=== PATIENT | female | born 1960 | race Caucasian/White ===

== ENCOUNTER → 2017-10-13 | Outpatient (CLI) | payer BC ==
[~2017-10-13] MED LIST: AMOX500C2 PO; AZTH250C PO; CARV12.53 PO; CHOL200018 PO; CHOL200035 PO; CNDS16T; CTRZ10T; HCT25T PO; HCTZ12.5T; IRB150T PO; IRBE150T50 PO; METH16TA2 PO; METO100T5 PO; MNTL10T; MNTL10T PO; OMEG-12 PO; PANT20TA2 PO; PRD20T PO; PRED20TA PO; ROSU10TA12; ROSU5TAB PO; TRZS2T PO; [UNRECOGNIZED DRUG - OTHER] PO
--- NOTE | 2017-10-14 21:43 | Diagnostic Imaging Report ---
Bilateral screening mammogram 2D views with tomosynthesis The current study was also evaluated with a Computer Aided Detection (CAD) system. Indication: Screening. No current complaints stated on the questionnaire. COMPARISON: 10/08/2016 FINDINGS: The breasts are composed of scattered fibroglandular densities. Benign-appearing calcifications are seen. Allowing for technique and positional differences, no suspicious change is seen. IMPRESSION: No significant change. ACR BI-RADS Category 2: Benign findings. Result letter will be mailed to the patient. Note: At least 10% of breast cancer is not imaged by mammography. Dictated by: Dictated on workstation # [id number]
== END ==
LOC: RAD 09:58
PROVIDERS: ATTEND Family Medicine
DX: Z12.31 Encounter for screening mammogram for malignant neoplasm of breast (principal)
CPT/HCPCS: 77067

== ENCOUNTER → 2018-04-28 | Outpatient (CLI) | payer BC ==
[~2018-04-28] VITALS: Ht 167.6 cm; Wt 102.2 kg
[~2018-04-28] MED LIST changes: +CETI10CA PO; +CHOL200014 PO; +GLUC-219 PO; +METO-395 PO
== END ==
LOC: PREOP 04-27 05:36
PROVIDERS: ATTEND Surgery
DX: Z01.818 Encounter for other preprocedural examination (principal); Z12.11 Encounter for screening for malignant neoplasm of colon

== ENCOUNTER 2018-05-04 06:55 | Day surgery (SDC) | payer BC ==
[~2018-05-04] VITALS: Ht 167.6 cm; Wt 102.2 kg
--- OUTSIDE RECORDS SUMMARY | 2018-05-04 06:57 | XMS REPORT | Continuity of Care Document ---
Author Author [facility] Organization [facility] Address Unknown Phone Unavailable Allergies Active Description Code Type Severity Reaction Onset Reported/Identified Relationship to Patient Clinical Status Yes NKANo Known Allergies NKA Miscellaneous Allergy Unknown N/A 07/10/2007 Medications There is no data. Problems Date Dx Coded Attending Type Code Diagnosis Diagnosed By 05/22/2015 ALANNAH WINTER MD Ot 708.9 10/19/2015 NEWTON HUMPHRIES Ot Z12.31 04/17/2016 Ot 708.0 ALLERGIC URTICARIA 04/17/2016 Ot 782.1 NONSPECIF SKIN ERUPT NEC 10/08/2016 BENJA MCCULLOUGH MD Ot Z12.31 ENCNTR SCREEN MAMMOGRAM FOR MALIGNANT NE 10/08/2016 BENJA MCCULLOUGH MD Ot Z12.31 ENCNTR SCREEN MAMMOGRAM FOR MALIGNANT NE 10/09/2016 BENJA MCCULLOUGH MD Ot Z12.31 ENCNTR SCREEN MAMMOGRAM FOR MALIGNANT NE 10/09/2016 BENJA MCCULLOUGH MD Ot Z12.31 ENCNTR SCREEN MAMMOGRAM FOR MALIGNANT NE 10/18/2016 BENJA MCCULLOUGH MD Ot Z12.31 ENCNTR SCREEN MAMMOGRAM FOR MALIGNANT NE 11/17/2016 Ot 708.0 ALLERGIC URTICARIA 11/17/2016 Ot 782.1 NONSPECIF SKIN ERUPT NEC 02/15/2017 Ot 708.0 ALLERGIC URTICARIA 02/15/2017 Ot 782.1 NONSPECIF SKIN ERUPT NEC 08/17/2017 Ot 708.0 ALLERGIC URTICARIA 08/17/2017 Ot 782.1 NONSPECIF SKIN ERUPT NEC 10/14/2017 BENJA MCCULLOUGH MD Ot Z12.31 ENCNTR SCREEN MAMMOGRAM FOR MALIGNANT NE 10/22/2017 BENJA MCCULLOUGH MD Ot Z12.31 ENCNTR SCREEN MAMMOGRAM FOR MALIGNANT NE Procedures There is no data. Results There is no data. Encounters ACCT No. Visit Date/Time Discharge Status Pt. Type Provider Facility Loc./Unit Complaint [id number] 10/13/2017 09:58:00 10/13/2017 23:59:59 CLS Outpatient BENJA MCCULLOUGH MD [facility] RAD SCREENING [id number] 10/08/2016 10:30:00 10/08/2016 23:59:59 CLS Outpatient BENJA MCCULLOUGH MD [facility] RAD SCREENING [id number] 10/03/2015 09:05:00 10/03/2015 23:59:59 CLS Outpatient NEWTON HUMPHRIES [facility] RAD [id number] 05/22/2015 05:49:00 05/22/2015 06:43:00 DIS Emergency MOY BARROW, ALANNAH Delacruz [facility] ER [id number] 09/08/2014 12:49:00 09/08/2014 23:59:59 CLS Outpatient [id number] 09/01/2014 09:21:00 09/01/2014 23:59:59 CLS Outpatient [id number] 05/04/2018 08:00:00 PEN Preadmit JAIR BARROW, MARIFER Sy [facility] ENDO SCREENING [id number] 01/17/2012 21:15:00 Document Registration [id number] 09/22/2017 17:01:48 09/22/2017 23:59:59 CLS Outpatient
[2018-05-04] MEDS ORDERED: NS IV 500 ML 500 ML ONE (06:58)
[2018-05-04] MEDS ORDERED: NS IV 500 ML 500 ML IV PRN (07:09)
[2018-05-04 07:21] VITALS: BP 124/98
--- NOTE | 2018-05-04 07:26 | History & Physicial ---
History of Present Illness History of Present Illness Reason for visit/HPI To undergo screening colonoscopy Date of Admission 05/04/18 Date Seen by Provider: May 04, 2018 Time Seen by Provider: 07:25 I consulted on this patient on 05/04/18 07:25 Attending Physician Marifer Goldstein MD Admitting Physician Phyllis Escobar MD Consult Allergies and Home Medications Allergies Coded Allergies: No Known Drug Allergies (Unverified , 04/28/18) Home Medications Cetirizine HCl 10 Mg Capsule, 5 MG PO DAILY, (Reported) Cholecalciferol (Vitamin D3) 2,000 Unit Tablet, 2,000 UNIT PO DAILY, (Reported) Glucosamine/D3/Boswellia Bessie 1 Each Tablet, 1 EACH PO DAILY, (Reported) Irbesartan 150 Mg Tablet, 150 MG PO DAILY, (Reported) Metoprolol Succinate 100 Mg Tab.er.24h, 100 MG PO DAILY, (Reported) Rosuvastatin Calcium 5 Mg Tablet, 5 MG PO HS, (Reported) Patient Home Medication List Home Medication List Reviewed: Yes Past Swgsfoa-Cpawni-Jcxfgq Hx Patient Social History Recent Foreign Travel: No Contact w/other who traveled: No Recent Hopitalizations: No Recent Infectious Disease Expo: No Seasonal Allergies Seasonal Allergies: No Cardiovascular Yes High Cholesterol, Hypertension Neurological No Reproductive System Hx Reproductive Disorders: No Sexually Transmitted Disease: No HIV/AIDS: No [employer]ER History: Menopausal Gastrointestinal Yes Polyps Musculoskeletal No Endocrine History of Endocrine Disorders: No HEENT History of HEENT Disorders: No Loss of Vision: Bilateral Hearing Impairment: Denies Blood Transfusions Adverse Reaction to a Blood Tr: No (N/A) Constitutional: no symptoms reported EENTM: no symptoms reported Respiratory: no symptoms reported Cardiovascular: no symptoms reported Gastrointestinal: no symptoms reported Genitourinary: no symptoms reported Musculoskeletal: no symptoms reported Skin: no symptoms reported Psychiatric/Neurological: No Symptoms Reported Physical Exam Vital Signs Vital Signs - First Documented 05/04/18 07:21 Temp 97.5 Pulse 83 Resp 18 B/P (MAP) 124/98 (107) Pulse Ox 95 O2 Delivery Room Air Capillary Refill : General Appearance: No Apparent Distress HEENT: Normal ENT Inspection Neck: Normal Inspection Respiratory: Lungs Clear Cardiovascular: Regular Rate, Rhythm Gastrointestinal: Non Tender, Soft Rectal: Deferred Neurologic/Psychiatric: Alert, Oriented x3 Skin: Warm/Dry Assessment/Plan Assessment and Plan Lady to undergo screening colonoscopy. Discussed in detail. Admission Diagnosis Admission Status: Other (Outpt Proc) MARIFER GOLDSTEIN MD May 04, 2018 7:26 am
--- NOTE | 2018-05-04 07:27 | Conscious Sedation/ASA ---
Conscious Sedation Pre-Proced Time Reviewed: 07:26 ASA Class: 2 Airway Mallampati Classification: (tolowa dee-ni' appropriate class) I. II. III, IV Lungs Heart ASA score ASA 1: a normal healthy patient ASA 2: a patient with a mild systemic disease (mid diabetes, controlled hypertension, obesity ASA 3: a patient with a severe systemic disease that limits activity (angina , COPD, prior Myocardial infarction) ASA 4: a patient with an incapacitating disease that is a constant threat to life (CHF, renal failure) ASA 5: a moribund patient not expected to survive 24 hrs. (ruptured aneurysm) ASA 6: a declared brain patient whose organs are being harvested. For emergent operations, add the letter E after the classification Grade 1 Sedation Plan: Discussed options with patient/fam Note The patient is an appropriate candidate to undergo the planned procedure, sedation, and anesthesia. The patient immediately re-assessed prior to indication. MARIFER ADAM MD May 04, 2018 7:27 am
[2018-05-04] MEDS ORDERED: MIDAZOLAM 2 MG/2 ML (VERSED) VIAL ONE ×3 (07:44→07:45)
[2018-05-04] MEDS ORDERED: fentaNYL INJECTION 100 MCG/2 ML AMP ONE (07:44)
[2018-05-04] MEDS: MIDAZOLAM 2 MG/2 ML (VERSED) VIAL IVP PRN ×2 (07:52→07:55)
[2018-05-04] MEDS: fentaNYL INJECTION 100 MCG/2 ML AMP IVP PRN ×2 (07:53→07:56)
--- NOTE | 2018-05-04 08:05 | Endo Procedure Record ---
Endo Procedure Report Date of Procedure Last Colonoscopy: Yes (2011) May 04, 2018 Surgeon (s) MARIFER ADAM MD Post Procedure/Op Diagnosis Sigmoid diverticulosis Procedure Performed Colonoscopy to cecum Description of Procedure Anesthesia Type: Conscious Sedation Specimen(s) collected/removed None Description of the Procedure Indication for the procedure: This lady came in for surveillance colonoscopy, having had polyps about 6 years ago. Informed consent was obtained after reviewing the procedure in detail. Description of procedure: She was placed in left lateral decubitus position and her vital signs were monitored. Conscious sedation was achieved using Versed and fentanyl. Digital rectal exam unremarkable. The colonoscope was then introduced into the rectum and advanced all the way up to the cecum . It was then withdrawn slowly and the mucosa examined in a systematic fashion. Finding: Sigmoid diverticulosis. No recurrent polyps were found She tolerated the procedure well and was taken back to the nursing area in a stable condition. Impression: Surveillance colonoscopy. No recurrent polyps. Recommend repeating in 5 years. Copy Copies To 1: BENJA MCCULLOUGH MD, XAVIER M MD May 04, 2018 8:05 am
--- NOTE | 2018-05-04 08:06 | Discharge Inst-Simple/Standard ---
Discharge Inst-Standard Discharge Medications New, Converted or Re-Newed RX: Other Patient Instructions/Follow Up Plan of Care/Instructions/FU: Repeat colonoscopy in 5 years Activity as Tolerated: Yes Discharge Diet: No Restrictions MARIFER ADAM MD May 04, 2018 8:06 am
[2018-05-04 08:25] VITALS: BP 94/75
[2018-05-04 08:48] VITALS: BP 104/76
[2018-05-04 08:52] VITALS: BP 104/76
== END 2018-05-04 09:00 | disposition home or self-care (01) ==
LOC: ENDO 06:55
PROVIDERS: ATTEND Surgery
DX: Z12.11 Encounter for screening for malignant neoplasm of colon (principal); K57.30 Diverticulosis of large intestine without perforation or abscess without bleeding; Z86.010 Personal history of colon polyps; I10 Essential (primary) hypertension; Z79.899 Other long term (current) drug therapy

== ENCOUNTER → 2018-10-15 | Outpatient (CLI) | payer BC ==
[~2018-10-15] MED LIST changes: -CHOL200014 PO; +CHOL200085 PO
--- NOTE | 2018-10-15 10:59 | Diagnostic Imaging Report ---
Indication: Routine screening. Comparison is made with prior mammogram from 10/13/2017 and 10/08/2016. 2-D and 3-D bilateral screening mammography was performed with CAD. Scattered fibroglandular densities are identified bilaterally. There is a rounded density in the outer portion of the left breast at mid depth, appearing more prominent than prior exams. No definite correlate is identified on the MLO view. Additional views are recommended. Right breast is unremarkable. No suspicious calcifications are seen. Axillae are unremarkable. Impression: BI-RADS 0 Left breast density. Additional views are recommended for further evaluation. ACR BI-RADS Category 0: Incomplete. (Needs additional imaging evaluation). Result letter will be mailed to the patient. Note: At least 10% of breast cancer is not imaged by mammography. Dictated by: Dictated on workstation # [id number]
== END ==
LOC: RAD 07:28
PROVIDERS: ATTEND Family Medicine
DX: Z12.31 Encounter for screening mammogram for malignant neoplasm of breast (principal); R92.8 Other abnormal and inconclusive findings on diagnostic imaging of breast
CPT/HCPCS: 77067

== ENCOUNTER → 2018-10-22 | Outpatient (CLI) | payer BC ==
--- NOTE | 2018-10-22 21:42 | Diagnostic Imaging Report ---
INDICATION: Left breast density. Patient presents for additional views. Correlation is made with recent screening study from 10/15/2018. Unilateral left 2-D and 3-D diagnostic mammography was performed with computer-aided detection (CAD) system. This included spot compression CC and ML as well as conventional 90-degree lateral view. FINDINGS: Additional views confirm a fairly well-circumscribed nodule in the outer left breast mid depth approximately 5 cm from the nipple. This density measures approximate 8 mm in size. No other abnormality is seen. IMPRESSION: Persistent nodular density outer left breast at approximately 3 o'clock and 5 cm from the nipple. Directed sonographic interrogation of this area is recommended and will be performed today. ACR BI-RADS Category 0: Incomplete. (Needs additional imaging evaluation). Result letter will be mailed to the patient. Note: At least 10% of breast cancer is not imaged by mammography. Dictated by: Dictated on workstation # [id number]
--- NOTE | 2018-10-22 21:45 | Diagnostic Imaging Report ---
INDICATION: Left breast density. Correlation is made with diagnostic mammogram earlier the same day and screening mammogram from 10/15/2018. FINDINGS: Sonographic interrogation of the outer left breast was performed. There is a small circumscribed hypoechoic mass at the 3 o'clock location 5 cm from the nipple measuring 7 mm x 7 mm x 3 mm. This likely represents a small cyst. There may be some slight internal complexity. No internal vascularity is present. IMPRESSION: Probable small slightly complex cyst, 3 o'clock location, likely accounting for the mammographic density. Patient may return to routine annual screening mammography. ACR BI-RADS Category 2: Benign findings. Dictated by: Dictated on workstation # [id number]
== END ==
LOC: RAD 10:49
PROVIDERS: ATTEND Nurse Practitioner Family
DX: R92.2 Inconclusive mammogram (principal)
CPT/HCPCS: 76642

== ENCOUNTER → 2019-10-18 | Outpatient (CLI) | payer BC ==
[~2019-10-18] MED LIST changes: +CHOL200014 PO; -CHOL200085 PO
--- NOTE | 2019-10-18 09:46 | Diagnostic Imaging Report ---
INDICATION: Routine screening. Comparison is made with prior mammogram 10/15/2018 and 10/13/2017. 2-D and 3-D bilateral screening mammography was performed with CAD. Scattered fibroglandular densities are identified bilaterally. Previously noted density in the outer left breast has resolved. There are benign calcifications in both breasts. No spiculated mass or malignant appearing microcalcifications are seen. Axillae are unremarkable. IMPRESSION: BI-RADS Category 2 No mammographic features suspicious for malignancy are identified. ACR BI-RADS Category 2: Benign findings. Result letter will be mailed to the patient. Note: At least 10% of breast cancer is not imaged by mammography. Dictated by: Dictated on workstation # [id number]
== END ==
LOC: RAD 07:16
PROVIDERS: ATTEND Family Medicine
DX: Z12.31 Encounter for screening mammogram for malignant neoplasm of breast (principal)
CPT/HCPCS: 77067

== ENCOUNTER → 2020-10-20 | Outpatient (CLI) | payer BC ==
[~2020-10-20] MED LIST changes: -METO-395 PO; +MTP100TCR PO
--- NOTE | 2020-10-20 12:18 | Diagnostic Imaging Report ---
Digital mammogram INDICATION: Bilateral screening This study was compared to the prior exams of 10/18/2019 10/15/2018 and 10/13/2017. At this time there are no current complaints. The breasts are predominantly fatty. When compared to the prior study there has been no significant change. There is no primary or secondary sign of malignancy noted. IMPRESSION: 1. There is no evidence of malignancy. ACR BI-RADS Category 1: Negative. Result letter will be mailed to the patient. Note: At least 10% of breast cancer is not imaged by mammography. Dictated by: Dictated on workstation # [id number]
== END ==
LOC: RAD 10:17
PROVIDERS: ATTEND Nurse Practitioner Family
DX: Z12.31 Encounter for screening mammogram for malignant neoplasm of breast (principal)
CPT/HCPCS: 77063; 77067

== ENCOUNTER → 2021-03-06 | Outpatient (CLI) | payer BC ==
[~2021-03-06] VITALS: Ht 165 cm; Wt 96.0 kg
[~2021-03-06] MED LIST changes: +REGADENOSON 0.4 MG/5 ML SYR (LEXISCAN) IV ONE
[2021-03-06] MEDS: CATHETER FLUSH 10 ML SYR IV PRN ×2 (12:28→13:31)
[2021-03-06 13:30] VITALS: BP 114/89
--- NOTE | 2021-03-07 12:45 | STRESS TEST ---
DATE OF SERVICE: 03/06/2021 RESTING AND POST REGADENOSON TECHNETIUM-99M TETROFOSMIN SPECT CT IMAGING ORDERING PHYSICIAN: Dr. Meredith. PRIMARY PHYSICIAN: Dr. Escobar. CLINICAL DIAGNOSIS: Chest discomfort. Baseline images were carried out after injection of 10.65 mCi of technetium-99m Tetrofosmin. This was followed by 0.4 mg regadenoson and 29.3 mCi of technetium-99m Tetrofosmin for stress imaging. The electrocardiogram showed sinus rhythm at baseline. It did not change significantly with the regadenoson infusion. Review of images at rest and following stress does not indicate any significant perfusion defects consistent with myocardial ischemia or infarction. Gated images show normal global left ventricular systolic function with normal regional wall motion. Left ventricular ejection fraction is calculated to be 64%. Left ventricular end diastolic volume is 75 mL. TID is absent (0.98). CONCLUSIONS: 1. No evidence of any significant myocardial ischemia or infarction on this study. 2. Normal regional wall motion. 3. Normal global left ventricular systolic function with a calculated ejection fraction of 64%. Job ID: [id number] DocumentID: [id number] Dictated Date: 03/07/2021 08:36:14 Yoghurt Maker Date: 03/07/2021 12:44:07 Dictated By: MARIA R MEREDITH MD, MA, FACP, FACC,
== END ==
LOC: CARD 12:00
PROVIDERS: ATTEND Internal Medicine Cardiovascular Disease
DX: I51.7 Cardiomegaly (principal)
CPT/HCPCS: 78452; 93017; 93306; A9502

== ENCOUNTER → 2021-11-01 | Outpatient (CLI) | payer BC ==
[~2021-11-01] MED LIST changes: -REGADENOSON 0.4 MG/5 ML SYR (LEXISCAN) IV ONE
--- NOTE | 2021-11-01 11:30 | Diagnostic Imaging Report ---
Indication: Routine screening. Comparison is made with prior mammogram from 10/20/2020 and 10/18/2019. 2-D and 3-D bilateral screening mammography was performed with CAD. Scattered fibroglandular densities are identified bilaterally. The parenchymal pattern is stable. No mass or malignant-appearing microcalcifications are seen. Axillae are unremarkable. IMPRESSION: BI-RADS Category 1 No mammographic features suspicious for malignancy are identified. ACR BI-RADS Category 1: Negative. Result letter will be mailed to the patient. Note: At least 10% of breast cancer is not imaged by mammography. Dictated by: Dictated on workstation # [id number]
== END ==
LOC: RAD 10:16
PROVIDERS: ATTEND Family Medicine
DX: Z12.31 Encounter for screening mammogram for malignant neoplasm of breast (principal)
CPT/HCPCS: 77063; 77067

== ENCOUNTER → 2022-11-21 | Outpatient (CLI) | payer BC ==
--- NOTE | 2022-11-21 14:14 | Diagnostic Imaging Report ---
Indication: Routine screening. Comparison is made with prior mammogram 11/01/2021 and 10/20/2020. 2-D and 3-D bilateral screening mammography was performed with CAD. CAD is utilized. The current study was also evaluated with a Computer Aided Detection (CAD) system. Scattered fibroglandular densities are identified bilaterally. There is a density in the upper and outer aspect of the left breast which appears more prominent than prior exam. Additional views are recommended. No other masses detected. No malignant-appearing microcalcifications are seen. Axillae are unremarkable. IMPRESSION: BI-RADS 0 Left breast density. Additional views are recommended for further evaluation. ACR BI-RADS Category 0: Incomplete. (Needs additional imaging evaluation). Result letter will be mailed to the patient. Note: At least 10% of breast cancer is not imaged by mammography. Dictated by: Dictated on workstation # [id number]
== END ==
LOC: RAD 10:19
PROVIDERS: ATTEND Family Medicine
DX: Z12.31 Encounter for screening mammogram for malignant neoplasm of breast (principal)
CPT/HCPCS: 77063; 77067

== ENCOUNTER → 2022-12-02 | Outpatient (CLI) | payer BC ==
--- NOTE | 2022-12-02 15:25 | Diagnostic Imaging Report ---
INDICATION: Left breast density. Patient presents for additional views. COMPARISON: Correlation is made with the screening study from 11/21/2022. TECHNIQUE: Unilateral left 2D and 3D diagnostic mammography was performed. This includes spot compression CC and ML views as well as conventional 90 degree lateral views. FINDINGS: Additional views show a persistent circumscribed density in the outer left breast approximately 5 to 6 cm from the nipple. Further evaluation of this area with ultrasound is recommended and will be performed today. IMPRESSION: Left breast density. Further evaluation with ultrasound is recommended and will be performed today. ACR BI-RADS Category 0: Incomplete. (Needs additional imaging evaluation). Result letter will be mailed to the patient. Note: At least 10% of breast cancer is not imaged by mammography. Dictated by: Dictated on workstation # [id number]
--- NOTE | 2022-12-02 15:38 | Diagnostic Imaging Report ---
INDICATION: Left breast density. COMPARISON: Correlation is made with the prior left breast ultrasound from 10/22/2018 as well as the recent screening mammogram from 11/21/2022 and the diagnostic mammogram from 12/02/2022. FINDINGS: Sonographic interrogation of the outer left breast was performed. A circumscribed hypoechoic nodule at the 3 o'clock location 5 cm from the nipple measures 7 mm x 3 mm x 7 mm, unchanged when compared with the prior exam. This has fairly benign features. IMPRESSION: Benign nodule at the 3 o'clock location of the left breast 5 cm from the nipple is stable when compared with the prior examination from 10/22/2018. The patient may return to routine annual screening mammography. ACR BI-RADS Category 2: Benign findings. Result letter will be mailed to the patient. Note: At least 10% of breast cancer is not imaged by mammography. Dictated by: Dictated on workstation # [id number]
== END ==
LOC: RAD 13:32
PROVIDERS: ATTEND Nurse Practitioner Family
DX: N63.25 Unspecified lump in the left breast, overlapping quadrants (principal); R92.2 Inconclusive mammogram
CPT/HCPCS: 76642; 77065; G0279